=== PATIENT | female | born 1995 | race Caucasian/White ===

== ENCOUNTER 2016-12-12 06:56 | Emergency (ER) | payer BC, OTHER | END 2016-12-12 10:19 | disposition home or self-care (01) | LOC: ER1 06:56 | DX: S90.02XA Contusion of left ankle, initial encounter (principal); W01.0XXA Fall on same level from slipping, tripping and stumbling without subsequent striking against object, initial encounter | CPT/HCPCS: 73590; 73610; 99283 ==

== ENCOUNTER → 2021-06-20 | Outpatient (CLI) | payer OTHER ==
[~2021-06-20] MED LIST: BENADRYL 50MG C50 MG PO; CLARITIN10 MG PO; IBUPROFEN PO; IBUPROFEN800 MG PO; METFORMIN HCL500 MG PO; PEN VK PO; THERAGRAN M TAB1 EA PO; TYLENOL W/CODEIN1 E1 PO; VITAMIN B12-FO1 EACH PO; VITAMIN D250000 UNIT PO
== END ==
LOC: EROP 16:49
DX: Z20.822 Contact with and (suspected) exposure to COVID-19 (principal)
CPT/HCPCS: U0002